=== PATIENT | female | born 1965 | race Caucasian/White ===

== ENCOUNTER 2017-12-07 17:54 | Emergency (ER) | payer MEDICAID, OTHER ==
[2017-12-07 18:01] VITALS: BP 126/80; TEMP 98.4; O2SAT 98
--- NOTE | 2017-12-07 18:53 | ED PDOC ---
HPI: SOB/CHF/COPD Time Seen by Provider: 12/07/17 18:14 Chief Complaint (Nursing): Shortness Of Breath Chief Complaint (Provider): Dyspnea History Per: Patient History/Exam Limitations: no limitations Onset/Duration Of Symptoms: Days (x 9), Intermittent Episodes Current Symptoms Are (Timing): Gone Now Additional Complaint(s): Aster is a 52 y/o female with a history of COPD who presents to the ED c/o dyspnea and nasal congestion on and off for the past 9 days. Patient describes the dyspnea as occurring when she is outside or walking. She states that she quit smoking cold turkey nine days ago and developed the symptoms since she stopped. Patient denies chest pain, palpitations, leg swelling, fever, cough, or any other complaints currently. She takes Advair for COPD. PMD: Jhonathan Wright Past Medical History Reviewed: Historical Data, Nursing Documentation, Vital Signs Vital Signs: Last Vital Signs Temp 98.4 F 12/07/17 17:56 Pulse 83 12/07/17 19:07 Resp 20 12/07/17 18:53 BP 126/80 12/07/17 17:56 Pulse Ox 98 12/07/17 21:17 - Medical History PMH: COPD - Family History Family History: States: Other Other Family History: heart disease - Social History Current smoker - smoking cessation education provided: No Ex-Smoker (has not smoked in the last 12 months): Yes (stopped 9 days ago) - Home Medications Home Medications: Ambulatory Orders Medication Instructions Recorded Albuterol HFA [Ventolin HFA 90 1 - 2 puff IH Q6 PRN #1 inhaler 12/07/17 mcg/actuation (8 g)] - Allergies Allergies/Adverse Reactions: Allergies Allergy/AdvReac Type Severity Reaction Status Date / Time No Known Allergies Allergy Verified 12/07/17 17:56 Review of Systems ROS Statement: Except As Marked, All Systems Reviewed And Found Negative Constitutional: Negative for: Fever ENT: Positive for: Nose Discharge Cardiovascular: Negative for: Chest Pain, Palpitations Respiratory: Positive for: Shortness of Breath, SOB with Exertion. Negative for : Cough Musculoskeletal: Negative for: Leg Pain (swelling) Physical Exam - Reviewed Nursing Documentation Reviewed: Yes Vital Signs Reviewed: Yes - Physical Exam Appears: Positive for: Well, Non-toxic, No Acute Distress Head Exam: Positive for: ATRAUMATIC, NORMAL INSPECTION, NORMOCEPHALIC Skin: Positive for: Normal Color, Warm, Dry Eye Exam: Positive for: Normal appearance, EOMI, PERRL. Negative for: Nystagmus ENT: Positive for: Normal ENT Inspection Neck: Positive for: Normal, Painless ROM, Supple Cardiovascular/Chest: Positive for: Regular Rate, Rhythm. Negative for: Murmur Respiratory: Positive for: Normal Breath Sounds. Negative for: Respiratory Distress Gastrointestinal/Abdominal: Positive for: Normal Exam, Bowel Sounds, Soft. Negative for: Tenderness Back: Positive for: Normal Inspection Extremity: Positive for: Normal ROM. Negative for: Pedal Edema, Deformity Neurologic/Psych: Positive for: Alert, Oriented - Laboratory Results Result Diagrams: 12/07/17 18:50 12/07/17 18:50 - ECG ECG: Positive for: Interpreted By Me, Viewed By Me ECG Rhythm: Positive for: Normal QRS, Sinus Rhythm. Negative for: ST/T Changes Rate: 83 (bpm) O2 Sat by Pulse Oximetry: 98 (RA) - Radiology X-Ray: Interpreted by Me, Viewed By Me X-Ray Interpretation: No Acute Disease Medical Decision Making Medical Decision Making: Time: 6:39 Initial Impression: Dyspnea Differentials include but not limited to COPD, allergic reaction, rhinosinusitis , less likely ACS, pulmonary embolism Initial Plan: --EKG --B Type Natriuretic --BMP --Troponin I --CBC --D Dimer --Chest XR Time: 7:00 --Patient signed out by me to Dr. Henry Hinds pending labs and imaging results. Scribe Attestation: Documented by Ludwig Lundberg, acting as a scribe for Jozef Collins MD Provider Scribe Attestation: All medical record entries made by the Scribe were at my direction and personally dictated by me. I have reviewed the chart and agree that the record accurately reflects my personal performance of the history, physical exam, medical decision making, and the department course for this patient. I have also personally directed, reviewed, and agree with the discharge instructions and disposition. Disposition - Clinical Impression Clinical Impression: Dyspnea, Upper respiratory infection - Patient ED Disposition Is Patient to be Admitted: Transfer of Care Counseled Patient/Family Regarding: Studies Performed, Diagnosis - Disposition Referrals: [facility] [Outside] Disposition: Transfer of Care Disposition Time: 07:00 Condition: STABLE Prescriptions: Albuterol HFA [Ventolin HFA 90 mcg/actuation (8 g)] 1 - 2 puff IH Q6 PRN #1 inhaler PRN Reason: Shortness Of Breath Instructions: Dyspnea (ED) Forms: [facility] (Georgian) Patient Signed Over To: Hnery Hinds
[2017-12-07 18:57] LABS: BASO # 0.1 K/uL (0.0-0.2); BASO % 1.1 % (0.0-2.0); EOS % 0.4 % (0.0-4.0); HEMOGLOBIN 13.5 g/dL (12.0-16.0); LYMPH # 2.2 K/uL (1.0-4.3); MEAN CELL VOLUME 84.4 fl (81.0-99.0); MEAN CORPUSCULAR HEMOGLOBIN 27.7 pg (27.0-31.0); MEAN CORPUSCULAR HGB CONC 32.8 g/dL (33.0-37.0); MEAN PLATELET VOLUME 8.4 fl (7.2-11.7); MONO # 0.4 K/uL (0.0-0.8); MONO % 4.5 % (0.0-10.0); NEUT # 6.1 K/uL (1.8-7.0); NRBC % 0.1 % (0.0-0.0); RBC 4.86 Mil/uL (3.80-5.20); RED CELL DISTRIBUTION WIDTH 13.9 % (11.5-14.5); WHITE BLOOD COUNT 8.9 K/uL (4.8-10.8)
[2017-12-07 19:06] VITALS: RESP 20
[2017-12-07 19:07] VITALS: PULSE 83
[2017-12-07 19:12] LABS: BLOOD UREA NITROGEN 11 mg/dl (7-17); CALCIUM 9.5 mg/dL (8.4-10.2); GFR AFRICAN-AMERICAN > 60; GFR NON-AFRICAN AMERICAN > 60
[2017-12-07 19:24] LABS: B-TYPE NATRIURETIC PEPTIDE 34.5 pg/ml (0-900)
--- NOTE | 2017-12-07 19:36 | ED PDOC ---
- Laboratory Results Result Diagrams: 12/07/17 18:50 12/07/17 18:50 - ECG O2 Sat by Pulse Oximetry: 98 (RA) Pulse Ox Interpretation: Normal Medical Decision Making Medical Decision Making: Time: 7:00 --Patient transferred to mt by Dr. Jozef Collins pending labs and XR Time: 8:30 --Labs were reviewed and show no clinically significant abnormalities. D Dimer is normal Clinical Impression: Dyspnea, URI Condition: Stable Scribe Attestation: Documented by Ludwig Lundberg, acting as a scribe for Henry Hinds MD. Provider Scribe Attestation: All medical record entries made by the Scribe were at my direction and personally dictated by me. I have reviewed the chart and agree that the record accurately reflects my personal performance of the history, physical exam, medical decision making, and the department course for this patient. I have also personally directed, reviewed, and agree with the discharge instructions and disposition. Disposition - Clinical Impression Clinical Impression: Dyspnea, Upper respiratory infection - POA Present On Arrival: None - Disposition Referrals: [facility] [Outside] Disposition: Routine/Home Disposition Time: 08:30 Condition: STABLE Prescriptions: Albuterol HFA [Ventolin HFA 90 mcg/actuation (8 g)] 1 - 2 puff IH Q6 PRN #1 inhaler PRN Reason: Shortness Of Breath Instructions: Dyspnea (ED) Forms: [employer] (Malawian)
--- NOTE | 2017-12-08 09:19 | RAD ---
HISTORY: dyspnea COMPARISON: Chest radiograph dated 08/01/2011. TECHNIQUE: Chest PA and lateral FINDINGS: LUNGS: No active pulmonary disease. PLEURA: No significant pleural effusion identified. No pneumothorax apparent. CARDIOVASCULAR: Normal. OSSEOUS STRUCTURES: No significant abnormalities. VISUALIZED UPPER ABDOMEN: Normal. OTHER FINDINGS: None. IMPRESSION: No active disease.
--- NOTE | 2017-12-08 13:06 | CARD ---
APPROVED REPORT EKG Measurement Heart [id number] <Conclusion> Normal sinus rhythm Normal ECG
== END 2017-12-07 20:24 | disposition home or self-care (01) ==
LOC: H.ER 17:54
DX: J06.9 Acute upper respiratory infection, unspecified (principal); J44.9 Chronic obstructive pulmonary disease, unspecified; Z87.891 Personal history of nicotine dependence

== ENCOUNTER 2017-12-18 11:19 | Emergency (ER) | payer SELFPAY ==
[2017-12-18 11:28] VITALS: BMI 34.5
[2017-12-18 11:29] VITALS: TEMP 98.9
[2017-12-18 12:20] LABS: BASO # 0.1 K/uL (0.0-0.2); BASO % 1.1 % (0.0-2.0); EOS # 0.1 K/uL (0.0-0.7); EOS % 0.8 % (0.0-4.0); HEMOGLOBIN 13.3 g/dL (12.0-16.0); LYMPH # 1.9 K/uL (1.0-4.3); LYMPH % 31.2 % (20.0-40.0); MEAN CELL VOLUME 84.4 fl (81.0-99.0); MEAN CORPUSCULAR HEMOGLOBIN 28.2 pg (27.0-31.0); MEAN CORPUSCULAR HGB CONC 33.4 g/dL (33.0-37.0); MEAN PLATELET VOLUME 8.3 fl (7.2-11.7); MONO # 0.3 K/uL (0.0-0.8); MONO % 4.8 % (0.0-10.0); NEUT # 3.8 K/uL (1.8-7.0); NEUT % 62.1 % (50.0-75.0); NRBC % 0.3 % (0.0-0.0); RBC 4.71 Mil/uL (3.80-5.20); RED CELL DISTRIBUTION WIDTH 14.4 % (11.5-14.5)
[2017-12-18 12:46] LABS: PROTHROMBIN TIME 11.2 Seconds (9.8-13.1)
[2017-12-18 12:54] LABS: ALB/GLOB RATIO 1.4 (1.0-2.1); ALBUMIN 3.9 g/dL (3.5-5.0); ALT/SGPT 28 U/L (9-52); AST/SGOT 20 U/L (14-36); BLOOD UREA NITROGEN 10 mg/dl (7-17); CALCIUM 9.3 mg/dL (8.4-10.2); GFR AFRICAN-AMERICAN > 60; GFR NON-AFRICAN AMERICAN > 60
--- NOTE | 2017-12-18 13:29 | ED PDOC ---
HPI: SOB/CHF/COPD Time Seen by Provider: 12/18/17 11:51 Chief Complaint (Nursing): Shortness Of Breath Chief Complaint (Provider): shortness of breath History Per: Patient History/Exam Limitations: no limitations Onset/Duration Of Symptoms: Gradual Quality: Tightness Current Respiratory Medications: See Home Med List Associated Symptoms: Heart Racing. denies: Chest Pain, Bloody Cough, Productive Cough, Leg/Calf Pain, Dizziness, Light-headedness, Anxiety Recently: Treated By A Physician Additional Complaint(s): 52yo female presents c/o persistent SOB now ongoing for several weeks. Denies cough, chest pain, hemoptysis, syncope, lower extremity pain/edema or headache but does note she needs to sleep on several pillows recently for ease of breathing. Also states symptoms worsen after she eats, feels pressure under diaphragm causing dyspnea. States had workup at [employer] last year unremarkable. She quit smoking recently after failing PFTs. Past Medical History Reviewed: Historical Data, Nursing Documentation, Vital Signs Vital Signs: Last Vital Signs Temp 98.9 F 12/18/17 11:28 Pulse 82 12/18/17 15:13 Resp 15 12/18/17 13:37 BP 109/75 12/18/17 13:37 Pulse Ox 98 12/18/17 15:13 - Medical History PMH: No Chronic Diseases, COPD, Hypothyroidism - Surgical History Surgical History: No Surg Hx - Family History Family History: States: Unknown Family Hx - Living Arrangements Living Arrangements: With Family - Social History Current smoker - smoking cessation education provided: No (quit within last few months prior 20yr history) Ex-Smoker (has not smoked in the last 12 months): No Drugs: Denies - Home Medications Home Medications: Ambulatory Orders Medication Instructions Recorded Albuterol HFA [Ventolin HFA 90 1 - 2 puff IH Q6 PRN #1 inhaler 12/07/17 mcg/actuation (8 g)] - Allergies Allergies/Adverse Reactions: Allergies Allergy/AdvReac Type Severity Reaction Status Date / Time No Known Allergies Allergy Verified 12/07/17 17:56 Review of Systems ROS Statement: Except As Marked, All Systems Reviewed And Found Negative Constitutional: Negative for: Fever, Chills Cardiovascular: Negative for: Chest Pain, Palpitations Respiratory: Positive for: Shortness of Breath. Negative for: Cough, Pleuritic Pain, Sputum, Wheezing Gastrointestinal: Positive for: Abdominal Pain (epigastric). Negative for: Nausea, Vomiting Genitourinary Female: Negative for: Dysuria Musculoskeletal: Negative for: Neck Pain Skin: Negative for: Rash, Lesions Neurological: Negative for: Weakness, Headache, Dizziness Psych: Negative for: Anxiety Physical Exam - Reviewed Nursing Documentation Reviewed: Yes Vital Signs Reviewed: Yes - Physical Exam Appears: Positive for: Well, Non-toxic, No Acute Distress Head Exam: Positive for: ATRAUMATIC, NORMAL INSPECTION, NORMOCEPHALIC Skin: Positive for: Normal Color, Warm, DRY Eye Exam: Positive for: EOMI, Normal appearance, PERRL ENT: Positive for: Normal ENT Inspection Neck: Positive for: Normal, Painless ROM Cardiovascular/Chest: Positive for: Regular Rate, Rhythm Respiratory: Positive for: Normal Breath Sounds. Negative for: Decreased Breath Sounds, Rhonchi, Wheezing, Respiratory Distress Gastrointestinal/Abdominal: Positive for: Normal Exam, Bowel Sounds, Soft Back: Positive for: Normal Inspection Extremity: Positive for: Normal ROM Neurologic/Psych: Positive for: Alert, Oriented - Laboratory Results Result Diagrams: 12/18/17 12:15 12/18/17 12:15 - ECG ECG: Positive for: Interpreted By Ms ECG Rhythm: Positive for: Normal QRS, Normal ST Segment, Sinus Rhythm Rate: 82 O2 Sat by Pulse Oximetry: 98 Pulse Ox Interpretation: Normal Medical Decision Making Medical Decision Making: prior ED visit reviewed, workup unremarkable but CT chest not performed Will repeat bloodwork today and obtain CTA chest to r/o PE or anatomical/ infectious reason for dyspnea labs reviewed no clinically significant abnormalities BNP, trop, Hgb normal range Accession No. : [id number] Patient Name / ID : ALEXA BOWIE / [id number] Exam Date : 12/18/2017 13:46:32 ( Approved ) Study Comment : Sex / Age : F / 52Y Creator : Parrish Muñoz MD Dictator : Parrish Muñoz MD Form Raiser : Flat Drier : Parrish Muñoz MD Approver2 : Report Date : 12/18/2017 15:06:12 My Comment : PROCEDURE: CT Chest with contrast (Pulmonary Angiogram) HISTORY: persistent dyspnea COMPARISON: None available. TECHNIQUE: Axial computed tomography images were obtained of the chest in the pulmonary arterial phase of enhancement. Coronal and sagittal reformatted images were created and reviewed. Maximum intensity projection (MIP) reconstructed images in the following planes: Intravenous contrast dose: 99 cc Visipaque 320 Mean Hounsfield unit values in the main pulmonary artery: 290.76 Radiation dose: Total exam DLP = 445.98 mGy-cm. This CT exam was performed using one or more of the following dose reduction techniques: Automated exposure control, adjustment of the mA and/or kV according to patient size, and/or use of iterative reconstruction technique. FINDINGS: PULMONARY ARTERIES: Unremarkable. No pulmonary embolism. AORTA: No acute findings. No thoracic aortic aneurysm. LUNGS: Unremarkable. No nodule, mass or pulmonary consolidation. PLEURAL SPACES: Unremarkable. No effusion or pneuomothorax. HEART: Unremarkable. No cardiomegaly. No significant pericardial effusion. LYMPH NODES: No lymphadenopathy. BONES, CHEST WALL: Unremarkable. No fracture or destructive lesion OTHER FINDINGS: Unremarkable. Enlarged left adrenal gland, the findings are nonspecific, the mass measures 1.8 x 2.5 cm. Elective followup recommended. IMPRESSION: Unremarkable CT pulmonary angiogram. No pulmonary embolus. Benign and incidental findings include well-circumscribed mass in the left adrenal gland. Elective followup recommended Patient told of adrenal findings and need for dedicated imaging as outpatient via PMD Given normal vitals, unremarkable EKG, negative BNP, normal trop, negative CTA chest, no wheezing, will DC and refer to PMD for further workup Rec trial nicotine replacement for feelings anxiety and SOB postprandial (when she would normally smoke) Disposition - Clinical Impression Clinical Impression: Dyspnea, Adrenal mass - Patient ED Disposition Is Patient to be Admitted: No Counseled Patient/Family Regarding: Studies Performed, Diagnosis, Need For Followup, Rx Given - Disposition Referrals: Jhonathan Wright MD [Staff Provider] - Disposition: Routine/Home Disposition Time: 15:23 Condition: STABLE Additional Instructions: See PMD for evaluation/imaging of small left adrenal enlargement. Consider trial nicotine replacement for anxiety/ dyspnea. CTA chest, bloodwork and EKG were reviewed with you in ED and unremarkable today. Consider cardiology workup as outpatient if not performed in last 6 months./ RETURN TO ER FOR ANY WORSE OR NEW SYMPTOMS. Instructions: Dyspnea (ED), How to Stop Smoking (ED) Forms: [employer] [facility] ([place]er)
[2017-12-18] MEDS ORDERED: Iodixanol 320 MG/ML 100 ML BOTTLE IV ONE (13:49)
[2017-12-18] MEDS ORDERED: Sodium Chloride 0.9% 50 ML IV ONE (13:49)
--- NOTE | 2017-12-18 15:07 | CT ---
PROCEDURE: CT Chest with contrast (Pulmonary Angiogram) HISTORY: persistent dyspnea COMPARISON: None available. TECHNIQUE: Axial computed tomography images were obtained of the chest in the pulmonary arterial phase of enhancement. Coronal and sagittal reformatted images were created and reviewed. Maximum intensity projection (MIP) reconstructed images in the following planes: Intravenous contrast dose: 99 cc Visipaque 320 Mean Hounsfield unit values in the main pulmonary artery: 290.76 Radiation dose: Total exam DLP = 445.98 mGy-cm. This CT exam was performed using one or more of the following dose reduction techniques: Automated exposure control, adjustment of the mA and/or kV according to patient size, and/or use of iterative reconstruction technique. FINDINGS: PULMONARY ARTERIES: Unremarkable. No pulmonary embolism. AORTA: No acute findings. No thoracic aortic aneurysm. LUNGS: Unremarkable. No nodule, mass or pulmonary consolidation. PLEURAL SPACES: Unremarkable. No effusion or pneuomothorax. HEART: Unremarkable. No cardiomegaly. No significant pericardial effusion. LYMPH NODES: No lymphadenopathy. BONES, CHEST WALL: Unremarkable. No fracture or destructive lesion OTHER FINDINGS: Unremarkable. Enlarged left adrenal gland, the findings are nonspecific, the mass measures 1.8 x 2.5 cm. Elective followup recommended. IMPRESSION: Unremarkable CT pulmonary angiogram. No pulmonary embolus. Benign and incidental findings include well-circumscribed mass in the left adrenal gland. Elective followup recommended
[2017-12-18 15:13] VITALS: O2SAT 98
[2017-12-18 15:48] VITALS: BP 123/75; PULSE 84; RESP 18
--- NOTE | 2017-12-19 11:10 | CARD ---
APPROVED REPORT EKG Measurement Heart [id number] <Conclusion> Normal sinus rhythm Normal ECG
== END 2017-12-18 15:50 | disposition home or self-care (01) ==
LOC: H.ER 11:19
DX: R06.00 Dyspnea, unspecified (principal); J44.9 Chronic obstructive pulmonary disease, unspecified; F41.9 Anxiety disorder, unspecified; E27.9 Disorder of adrenal gland, unspecified; Z72.0 Tobacco use
CPT/HCPCS: 71275; 80053; 83880; 84484; 85025; 85610; 85730; 93005; 99284; Q9967

== ENCOUNTER 2018-01-21 15:19 | Emergency (ER) | payer OTHER ==
[2018-01-21 15:19] VITALS: BMI 34.5
[2018-01-21 15:27] VITALS: BP 128/82; PULSE 84; RESP 17; TEMP 98.4; O2SAT 98
--- NOTE | 2018-01-21 16:00 | ED PDOC ---
HPI: General Adult Time Seen by Provider: 01/21/18 15:29 Chief Complaint (Nursing): Back Pain Chief Complaint (Provider): Back pain History Per: Patient History/Exam Limitations: no limitations Onset/Duration Of Symptoms: Days (x2) Current Symptoms Are (Timing): Still Present Additional Complaint(s): Aster Adkins is a 52 year female, with a past medical history of hypothyroidism, who presents to the emergency department complaining of a constant mid back pain that worsens with deep breaths onset for x2 days. Patient reports she stopped smoking x2 months ago after 25 years. She denies any trauma or injury, fever, chills, cough, chest pain, leg swelling, shortness of breath, recent travel, urinary symptoms, or abdominal pain. No further medical complaints. PMD: Clinic. Past Medical History Reviewed: Historical Data, Nursing Documentation, Vital Signs Vital Signs: Last Vital Signs Temp 98.4 F 01/21/18 15:23 Pulse 84 01/21/18 15:23 Resp 17 01/21/18 15:23 BP 128/82 01/21/18 15:23 Pulse Ox 98 01/21/18 16:04 - Medical History PMH: COPD, Hypothyroidism - Surgical History Surgical History: No Surg Hx - Family History Family History: States: Unknown Family Hx - Social History Current smoker - smoking cessation education provided: Yes (Stopped x2 months ago after 25 yrs.) - Home Medications Home Medications: Ambulatory Orders Medication Instructions Recorded Albuterol HFA [Ventolin HFA 90 1 - 2 puff IH Q6 PRN #1 inhaler 12/07/17 mcg/actuation (8 g)] Naproxen 500 mg PO BID PRN #20 tablet 01/21/18 - Allergies Allergies/Adverse Reactions: Allergies Allergy/AdvReac Type Severity Reaction Status Date / Time No Known Allergies Allergy Verified 12/07/17 17:56 Review of Systems ROS Statement: Except As Marked, All Systems Reviewed And Found Negative Constitutional: Negative for: Fever, Chills Cardiovascular: Negative for: Chest Pain Respiratory: Negative for: Cough, Shortness of Breath Gastrointestinal: Negative for: Abdominal Pain Genitourinary Female: Negative for: Dysuria, Frequency, Incontinence Musculoskeletal: Positive for: Back Pain (constant mid back). Negative for: Leg Pain (or swelling.) Physical Exam - Reviewed Nursing Documentation Reviewed: Yes Vital Signs Reviewed: Yes - Physical Exam Comments: GENERAL APPEARANCE: Patient is awake, alert, oriented x 3, in no acute distress. SKIN: Warm, dry; (-) cyanosis. EYES: (-) conjunctival pallor. ENMT: Mucous membranes moist. NECK: (-) tenderness, (-) stiffness, (-) lymphadenopathy, (-) JVD. CHEST AND RESPIRATORY: (-) rash, (-) chest wall tenderness. Lungs: (-) rales , (-) rhonchi, (-) wheezes, (-) rub; breath sounds equal bilaterally. HEART AND CARDIOVASCULAR: (-) irregularity; (-) murmur, (-) gallop, (-) rub. ABDOMEN AND GI: Soft; (-) distention, (-) tenderness, (-) palpable pulsatile mass. EXTREMITIES: (-) deformity; (-) edema, (-) calf tenderness. (+) distal pulses. NEURO AND PSYCH: Mental status as above. Cranial nerves grossly intact; strength symmetric. - Laboratory Results Result Diagrams: 01/21/18 16:50 01/21/18 16:50 - ECG O2 Sat by Pulse Oximetry: 98 (RA) Pulse Ox Interpretation: Normal Medical Decision Making Medical Decision Making: Initial Impression: Back pain Initial Plan: --CMP --CBC w/ differential --D Dimer --PTT --PT --Chest two views (PA/LAT) [RAD] --Urine culture --Urinalysis --Reevaluation CXR : NAD, as read by BRIDGER UA (-) Labs reviewed and are wnl, d-dimer (-). On re-evaluation, patient resting comfortably in bed in no acute distress, speaking in full sentences, breathing is easy an unlabored. Diagnostic results d/w the patient in great detail. Dx of back pain d/w the patient. Based on history, exam and diagnostic results plan will be for outpt f/u. Advised to follow up with primary care physician in 1-2 days without fail. Advised to take medication as prescribed. Return to the emergency room at any time for any new or worsening symptoms. Patient states she fully agrees with and understands discharge instructions. States that she agrees with the plan and disposition. Verbalized and repeated discharge instructions and plan. I have given the patient opportunity to ask any additional questions. ~ Scribe Attestation: Documented by Barrera Calderon, acting as a scribe for Estrella Rojo PA-C. Provider Scribe Attestation: All medical record entries made by the Scribe were at my direction and personally dictated by me. I have reviewed the chart and agree that the record accurately reflects my personal performance of the history, physical exam, medical decision making, and the department course for this patient. I have also personally directed, reviewed, and agree with the discharge instructions and disposition. Disposition - Clinical Impression Clinical Impression: Back pain - Patient ED Disposition Is Patient to be Admitted: No Counseled Patient/Family Regarding: Studies Performed, Diagnosis, Need For Followup, Rx Given - Disposition Disposition: Routine/Home Disposition Time: 18:00 Condition: STABLE Additional Instructions: Thank you for letting us take care of you today. You were treated for back pain. The emergency medical care you received today was directed at your acute symptoms. If you were prescribed any medication, please fill it and take as directed. It may take several days for your symptoms to resolve. Return to the Emergency Department if your symptoms worsen, do not improve, or if you have any other problems. Please contact your doctor in 2 days for re-evaluation and follow up. Bring any paperwork you were given at discharge with you along with any medications you are taking to your follow up visit. Our treatment cannot replace ongoing medical care by a primary care provider (PCP) outside of the emergency department. Prescriptions: Naproxen 500 mg PO BID PRN #20 tablet PRN Reason: Pain, Moderate (4-7) Instructions: Upper Back Pain (DC) Forms: [employer] (Norwegian), [facility] ED School/Work Excuse - PA / DATA SYSTEMS ANALYST / Resident Statement MD/DO has reviewed & agrees with the documentation as recorded.
--- NOTE | 2018-01-21 16:39 | RAD ---
HISTORY: back pain COMPARISON: Chest radiographs 12/07/2017 TECHNIQUE: Chest PA and lateral FINDINGS: LUNGS: No active pulmonary disease. PLEURA: No significant pleural effusion identified. No pneumothorax apparent. CARDIOVASCULAR: Normal. OSSEOUS STRUCTURES: No significant abnormalities. VISUALIZED UPPER ABDOMEN: Normal. OTHER FINDINGS: None. IMPRESSION: No interval acute cardiopulmonary disease appreciated.
[2018-01-21 17:01] LABS: BASO # 0.1 K/uL (0.0-0.2); BASO % 0.8 % (0.0-2.0); EOS % 0.7 % (0.0-4.0); HEMOGLOBIN 13.2 g/dL (12.0-16.0); LYMPH # 2.2 K/uL (1.0-4.3); MEAN CELL VOLUME 84.9 fl (81.0-99.0); MEAN CORPUSCULAR HEMOGLOBIN 28.4 pg (27.0-31.0); MEAN CORPUSCULAR HGB CONC 33.4 g/dL (33.0-37.0); MEAN PLATELET VOLUME 8.6 fl (7.2-11.7); MONO # 0.4 K/uL (0.0-0.8); MONO % 5.4 % (0.0-10.0); NEUT # 4.7 K/uL (1.8-7.0); NEUT % 63.1 % (50.0-75.0); NRBC % 0.1 % (0.0-0.0); RBC 4.66 Mil/uL (3.80-5.20); RED CELL DISTRIBUTION WIDTH 14.9 % (11.5-14.5); WHITE BLOOD COUNT 7.5 K/uL (4.8-10.8)
[2018-01-21 17:12] LABS: SQUAMOUS EPITHIAL 1 /hpf (0-5); URINE BILIRUBIN NEGATIVE (NEGATIVE); URINE BLOOD NEGATIVE (NEGATIVE); URINE CLARITY CLEAR (Clear); URINE COLOR YELLOW (YELLOW); URINE GLUCOSE (UA) NEG (Normal); URINE LEUKOCYTE ESTERASE NEG Leu/uL (Negative); URINE NITRATE NEGATIVE (NEGATIVE); URINE PROTEIN NEGATIVE (NEGATIVE); URINE UROBILINOGEN 0.2-1.0 mg/dL (0.2-1.0)
[2018-01-21 17:20] LABS: ALB/GLOB RATIO 1.3 (1.0-2.1); ALBUMIN 4.4 g/dL (3.5-5.0); ALT/SGPT 31 U/L (9-52); AST/SGOT 26 U/L (14-36); BLOOD UREA NITROGEN 14 mg/dl (7-17); GFR AFRICAN-AMERICAN > 60; GFR NON-AFRICAN AMERICAN > 60
[2018-01-21 17:51] LABS: PROTHROMBIN TIME 10.9 Seconds (9.8-13.1)
[2018-01-21 17:52] LABS: PARTIAL THROMBOPLASTIN TIME 24.1 Seconds (25.6-37.1)
== END 2018-01-21 18:32 | disposition home or self-care (01) ==
LOC: H.ER 15:19
DX: M54.9 Dorsalgia, unspecified (principal); E03.9 Hypothyroidism, unspecified; F17.200 Nicotine dependence, unspecified, uncomplicated; J44.9 Chronic obstructive pulmonary disease, unspecified

== ENCOUNTER 2018-12-15 11:50 | Emergency (ER) | payer MEDICAID ==
[2018-12-15 11:55] VITALS: BMI 40.0
[2018-12-15 11:56] VITALS: BP 116/74; PULSE 69; RESP 17; TEMP 98.2; O2SAT 96
--- NOTE | 2018-12-15 12:54 | ED PDOC ---
HPI: Influenza Time Seen by Provider: 12/15/18 12:16 Chief Complaint: Flu-like Symptoms Chief Complaint (Provider): Flu-like symptoms History Per: Patient Exam Limitations: no limitations Onset/Duration Of Symptoms: Days (2x) Symptoms include: fever (tactile), bodyaches, sore throat, nasal congestion, other (right ear pain. (-) facial pain, (-) nausea.). denies: cough, vomiting, diarrhea, chest pain, rash Hx Influenza Vaccination: No Additional complaint(s):: 53 year old female with a past medical history of hypothyroidism presents to the ED for an evaluation of flu-like symptoms that started yesterday. Patient reports that yesterday she developed bodyaches, a tactile fever, nasal congestion, a sore throat, and right ear pain. Patient reports that she has been taking Tylenol (last dose yesterday) with no relief. Patient denies having a cough, chest pain, rash, facial pain, nausea, vomiting, diarrhea, sick contacts and recent travel. Influenza vaccination is not up to date. PMD: [facility] Past Medical History Reviewed: Historical Data, Nursing Documentation, Vital Signs Vital Signs: Last Vital Signs Temp 98.2 F 12/15/18 11:55 Pulse 69 12/15/18 11:55 Resp 17 12/15/18 11:55 BP 116/74 12/15/18 11:55 Pulse Ox 96 12/15/18 11:55 ROSALVA Report Viewed: Yes - Medical History PMH: COPD, Hypothyroidism Denies: Chronic Kidney Disease - Family History Family History: States: No Known Family Hx - Social History Current smoker - smoking cessation education provided: No Ex-Smoker (has not smoked in the last 12 months): Yes Alcohol: Occasional Drugs: Denies - Home Medications Home Medications: Ambulatory Orders Medication Instructions Recorded Albuterol HFA [Ventolin HFA 90 1 - 2 puff IH Q6 PRN #1 inhaler 12/07/17 mcg/actuation (8 g)] Naproxen 500 mg PO BID PRN #20 tablet 01/21/18 Fluticasone Propionate [Flonase] 2 spr NS DAILY PRN #1 bottle 12/15/18 Oseltamivir Cap [Tamiflu] 75 mg PO BID #9 cap 12/15/18 - Allergies Allergies/Adverse Reactions: Allergies Allergy/AdvReac Type Severity Reaction Status Date / Time No Known Allergies Allergy Verified 12/07/17 17:56 Review of Systems ROS Statement: Except As Marked, All Systems Reviewed And Found Negative Constitutional: Positive for: Fever (tactile), Other (bodyaches) ENT: Positive for: Ear Pain (right), Nose Congestion, Throat Pain. Negative for: Other (facial pain) Cardiovascular: Negative for: Chest Pain Respiratory: Negative for: Cough Gastrointestinal: Negative for: Nausea, Vomiting, Diarrhea Skin: Negative for: Rash Physical Exam - Reviewed Nursing Documentation Reviewed: Yes Vital Signs Reviewed: Yes - Physical Exam Appears: Positive for: Well, Non-toxic, No Acute Distress Head Exam: Positive for: ATRAUMATIC, NORMOCEPHALIC Skin: Positive for: Normal Color, Warm, Dry Eye Exam: Positive for: Normal appearance, EOMI, PERRL ENT: Positive for: Normal ENT Inspection, Pharynx Is (clear), TM Is/Are (normal). Negative for: Pharyngeal Erythema, Tonsillar Exudate, Tonsillar Swelling Cardiovascular/Chest: Positive for: Regular Rate, Rhythm Respiratory: Positive for: Normal Breath Sounds Lymphatic: Negative for: Adenopathy Neurologic/Psych: Positive for: Alert, Oriented (3x) Medical Decision Making Medical Decision Makin:16 Initial impression: 53 year old female with flu-like symptoms. Initial plan: * rapid strep group a antigen * tylenol 325 mg tab 975 mg PO * reevaluation 1320 Rapid strep: negative On re-valuation, pt. sleeping comfortably. Reports feeling better. Advised to f/u with [facility] but is to return to ED immediately if symptoms worsen. Scribe Attestation: Documented Afua Trevino, acting as a scribe for [employer] Provider Scribe Attestation: All medical record entries made by the Scribe were at my direction and personally dictated by me. I have reviewed the chart and agree that the record accurately reflects my personal performance of the history, physical exam, medical decision making, and the department course for this patient. I have also personally directed, reviewed, and agree with the discharge instructions and disposition. - ECG O2 Sat by Pulse Oximetry: 96 (RA) Pulse Ox Interpretation: Normal Disposition - Clinical Impression Clinical Impression: Influenza-like symptoms - Patient ED Disposition Is Patient to be Admitted: No - Disposition Referrals: [facility] [Outside] Disposition: Routine/Home Disposition Time: 13:23 Condition: STABLE Additional Instructions: FOLLOW UP WITH [facility] FOR FURTHER EVALUATION RETURN TO ED IMMEDIATELY IF SYMPTOMS WORSEN JAMIR LIU, thank you for letting us take care of you today. Your provider was Delmar Davis MD and you were treated for SORE THROAT, ALL OVER BODY ACHE,CONGESTION. The emergency medical care you received today was directed at your acute symptoms. If you were prescribed any medication, please fill it and take as directed. It may take several days for your symptoms to resolve. Return to the Emergency Department if your symptoms worsen, do not improve, or if you have any other problems. Please contact your doctor or call one of the physicians/clinics you have been referred to that are listed on the Patient Visit Information form that is included in your discharge packet. Bring any paperwork you were given at discharge with you along with any medications you are taking to your follow up visit. Our treatment cannot replace ongoing medical care by a primary care provider outside of the emergency department. Thank you for allowing the [facility] team to be part of your care today. If you had an X-Ray or CT scan: A Radiologist will review the ED reading if any change in treatment is needed we will contact you. If you had a blood, urine, or wound culture: It will take several days for the results, if any change in treatment is needed we will contact you. If you had an STI test: It will take 48 hours for the results. Please call after 1 week if you have not heard back. Prescriptions: Fluticasone Propionate [Flonase] 2 spr NS DAILY PRN #1 bottle PRN Reason: Allergy Symptoms Oseltamivir Cap [Tamiflu] 75 mg PO BID #9 cap Instructions: Flu, Adult (DC) Forms: [employer] (Tongan), [facility] ED School/Work Excuse
== END 2018-12-15 13:39 | disposition home or self-care (01) ==
LOC: H.ER 11:50
DX: J11.1 Influenza due to unidentified influenza virus with other respiratory manifestations (principal); J44.9 Chronic obstructive pulmonary disease, unspecified; Z87.891 Personal history of nicotine dependence; E03.9 Hypothyroidism, unspecified